=== PATIENT | female | born 1985 | race African-American/Black ===

== ENCOUNTER 2016-06-07 21:04 | Emergency (ER) | payer MEDICAID ==
[~2016-06-07] VITALS: Ht 157.5 cm; Wt 77.1 kg
[2016-06-07 21:09] VITALS: BP 133/85
[2016-06-08] MEDS ORDERED: diphenhdrAMINE HCL 50 MG/1 ML VL IM ONE (00:15)
[2016-06-08] MEDS ORDERED: methylPREDNISolone SOD SUCC 125 MG/2 ML VL IM ONE (00:15)
== END 2016-06-08 00:31 | disposition home or self-care (01) ==
LOC: ER 21:09
DX: T78.1XXA Other adverse food reactions, not elsewhere classified, initial encounter (principal); X58.XXXA Exposure to other specified factors, initial encounter; Z88.8 Allergy status to other drugs, medicaments and biological substances
CPT/HCPCS: 96372; 99284; J1200; J2930

== ENCOUNTER 2017-03-19 00:09 | Observation (INO) | payer OTHER ==
[2017-03-19 01:09] LABS: Urine Bacteria NONE SEEN /hpf (None Seen); Urine Blood Negative /uL (Negative); Urine Specific Gravity 1.009 (1.001-1.035); Urine WBC 1 /hpf (0 - 5)
[2017-03-19 01:25] LABS: Alcohol, Urine < 3.0 mg/dL (0-5); Amphetamine Screen, Urine NEGATIVE (NEGATIVE); Barbiturate Scree,Urine NEGATIVE (NEGATIVE); Benzodiazephine Screen, Urine NEGATIVE (NEGATIVE); Cannabinoid Screen, Urine NEGATIVE (NEGATIVE); Cocaine Screen, Urine NEGATIVE (NEGATIVE); Opiate Scree,Urine NEGATIVE (NEGATIVE); Phencyclidine Screen, Urine NEGATIVE (NEGATIVE)
[2017-03-19] MEDS ORDERED: PREN-153 OR (02:12)
== END 2017-03-19 02:10 | disposition home or self-care (01) | DRG 566 ==
LOC: LDRP 00:09
PROVIDERS: ADMIT Obstetrics & Gynecology; ATTEND Obstetrics & Gynecology
DX: O26.892 Other specified pregnancy related conditions, second trimester (principal); R10.30 Lower abdominal pain, unspecified; O46.92 Antepartum hemorrhage, unspecified, second trimester; Z3A.25 25 weeks gestation of pregnancy
CPT/HCPCS: 59025; 76815; 80307; 81001; G0378